=== PATIENT | male | born 1950 ===

== ENCOUNTER 2021-07-27 06:02 | Day surgery (SDC) | payer OTHER ==
[~2021-07-27 06:02] MED LIST: AMLODI PO; COZAAR100 MG PO; GABAPE PO; GLUMETZA500 MG PO; OMEGA 3 1,0001 EACH PO; OXYBU PO; SIMVASTA PO; TAMS0.4C PO; TOUJEO; TROKENDI XR50 MG PO; TRULICITY0.75 MG/0. SQ
== END 2021-07-27 19:10 | disposition home or self-care (01) ==
LOC: CIR.AMB 06:02
PROVIDERS: ATTEND Colon & Rectal Surgery
DX: K64.4 Residual hemorrhoidal skin tags (principal); K64.8 Other hemorrhoids; Z20.822 Contact with and (suspected) exposure to COVID-19